=== PATIENT | female | born 1940 ===

== ENCOUNTER 2017-02-21 09:38 | Emergency (ER) | payer MEDICARE, BC, OTHER ==
[2017-02-21] MEDS ORDERED: FENTANYL 100MCG/2ML SOL IV ONE (10:15)
[2017-02-21] MEDS ORDERED: MIDAZOLAM 2 MG/2 ML SOL IV ONE (10:16)
[2017-02-21] MEDS ORDERED: KETAMINE HYDROCHLORIDE 50 MG/ML SOL ONE (10:54)
[2017-02-21] MEDS ORDERED: MIDAZOLAM HCL 2 MG/ML SYP PO ONE (11:45)
[2017-02-21] MEDS ORDERED: FLUMAZENIL 1 MG/10 ML SOL IV ONE ×3 (12:07→13:48)
[2017-02-21 12:33] VITALS: TEMP 97.2
[2017-02-21 14:27] VITALS: BP 149/72; PULSE 77; RESP 17; O2SAT 98
== END 2017-02-21 15:05 | disposition home or self-care (01) | DRG 563 ==
LOC: ED 09:38
DX: S43.015A Anterior dislocation of left humerus, initial encounter (principal); W01.0XXA Fall on same level from slipping, tripping and stumbling without subsequent striking against object, initial encounter
CPT/HCPCS: 73020; 73030; 99285

== ENCOUNTER 2017-02-25 00:26 | Emergency (ER) | payer MEDICARE, BC, OTHER ==
[2017-02-25 00:28] VITALS: O2SAT 98
[2017-02-25 00:41] VITALS: RESP 18; TEMP 97.3
[2017-02-25] MEDS ORDERED: HYDROMORPHONE 1 MG/ML SYRINGE IV PRN (00:41)
[2017-02-25] MEDS ORDERED: SODIUM CHLORIDE 0.9% FLUSH 10 ML SOL IV PRN (00:41)
[2017-02-25] MEDS ORDERED: HYDROMORPHONE 1 MG/ML SYRINGE ONE (00:46)
[2017-02-25 02:03] VITALS: BP 139/69; PULSE 71
== END 2017-02-25 01:45 | disposition home or self-care (01) | DRG 563 ==
LOC: ED 00:26
DX: M24.412 Recurrent dislocation, left shoulder (principal)
CPT/HCPCS: 23650; 73030; 96374; 99285; J1170

== ENCOUNTER 2017-03-12 13:54 | Outpatient (CLI) | payer MEDICARE, BC, OTHER | END 2017-03-12 13:55 | disposition home or self-care (01) | DRG 563 | LOC: CONVCARE 13:54 | PROVIDERS: ATTEND Orthopaedic Surgery | DX: M24.412 Recurrent dislocation, left shoulder (principal) | CPT/HCPCS: 73200 ==

== ENCOUNTER 2017-05-07 08:39 | Outpatient (CLI) | payer MEDICARE, BC, OTHER | END 2017-05-07 08:40 | disposition home or self-care (01) | DRG 563 | LOC: CONVCARE 08:39 | PROVIDERS: ATTEND Orthopaedic Surgery | DX: M24.412 Recurrent dislocation, left shoulder (principal) | CPT/HCPCS: 73030 ==

== ENCOUNTER 2017-06-18 09:00 | Outpatient (CLI) | payer MEDICARE, BC, OTHER | END 2017-06-18 09:01 | disposition home or self-care (01) | DRG 566 | LOC: CONVCARE 09:00 | PROVIDERS: ATTEND Orthopaedic Surgery | DX: M25.312 Other instability, left shoulder (principal) | CPT/HCPCS: 73030 ==